=== PATIENT | male | born 1960 | race Two or more races ===

== ENCOUNTER 2017-12-08 16:54 | Inpatient (IN) | payer OTHER ==
[~2017-12-08] VITALS: Ht 167.6 cm; Wt 88.9 kg
[~2017-12-08 16:54] MED LIST: ALBUTEROL SULFAT2 MG; CARDIZEM CD240 MG PO; CARDIZEM LA240 MG; HYZAAR 100-121 UDTAB; HYZAAR 100-121 UDTAB PO; LEVAQUIN750 MG PO; PREDNISONE10 MG; RYTHMOL SR225 MG; ZOCOR80 MG; [UNRECOGNIZED DRUG - OTHER]
== END 2017-12-14 17:38 | disposition home or self-care (01) | DRG 440 ==
LOC: ER 16:54 → SEC-K 22:46 → MEDI 12-10 14:00
PROC: BW40ZZZ Ultrasonography of Abdomen (ICD-10-PCS; principal; 2017-12-08)
PROC: BF37ZZZ Magnetic Resonance Imaging (MRI) of Pancreas (ICD-10-PCS; 2017-12-08)
PROC: 3E0F7GC Introduction of Other Therapeutic Substance into Respiratory Tract, Via Natural or Artificial Opening (ICD-10-PCS; 2017-12-08)
DX: K85.80 Other acute pancreatitis without necrosis or infection (principal); E11.9 Type 2 diabetes mellitus without complications; I11.9 Hypertensive heart disease without heart failure; J44.9 Chronic obstructive pulmonary disease, unspecified; J45.998 Other asthma

== ENCOUNTER 2018-12-06 16:35 | Inpatient (IN) | payer OTHER ==
[~2018-12-06] VITALS: Ht 167.6 cm; Wt 93.9 kg
[~2018-12-06 16:35] MED LIST changes: +AMIODARONE PO; +CALAN SR120 MG; +CARDURA1 MG PO; +COZAAR100 MG; +GLIPIZIDE ER2.5 MG; +METFORMIN HCL500 MG; +ZETIA10 MG
[2018-12-06] MEDS ORDERED: GLUCOTROL10 MG (16:44)
[2018-12-06] MEDS ORDERED: COZAAR100 MG (16:44)
[2018-12-06] MEDS ORDERED: SINGULAIR 10MG10 MG (16:44)
--- NOTE | 2018-12-06 16:45 | NUR ---
SE RECIBE PACIENTE QUE REFIERE DOLOR ABDOMINAL JOE DESDE ESTA MANANA. PACIENTE VERBALIZA FRANK SIDO REFERIDO A KATIE DE EMERGENCIAS POR LA LIPASA ALYSHA EN LABORATORIO.
--- NOTE | 2018-12-06 17:40 | NUR ---
PACIENTE ALERTA Y ORIENTADO EVALAUDO POR EL DR. STEPHEN SE ORIENTA A PACIENTE SOBRE TRATAMEINTO MEDICO SE EXTRAEN MUESTRAS DE SHAWN Y SE ADMINSITRAN MEDICAEMNTOS FABY ORDEN MEDICA BAJO MEDIDAS ASEPTICAS.
[2018-12-07] MEDS ORDERED: AMIODARONE HCL200 MG PO (11:09)
== END 2018-12-12 10:43 | disposition home or self-care (01) | DRG 439 ==
LOC: ER 16:35 → SEC-K 23:53 → MEDI 23:53
PROVIDERS: ADMIT Internal Medicine
PROC: BW40ZZZ Ultrasonography of Abdomen (ICD-10-PCS; 2018-12-06)
PROC: 3E0F7GC Introduction of Other Therapeutic Substance into Respiratory Tract, Via Natural or Artificial Opening (ICD-10-PCS; 2018-12-06)
PROC: BF37ZZZ Magnetic Resonance Imaging (MRI) of Pancreas (ICD-10-PCS; principal; 2018-12-07)
DX: K86.1 Other chronic pancreatitis (principal); J44.1 Chronic obstructive pulmonary disease with (acute) exacerbation; J44.0 Chronic obstructive pulmonary disease with (acute) lower respiratory infection; J20.9 Acute bronchitis, unspecified; E11.65 Type 2 diabetes mellitus with hyperglycemia; E11.22 Type 2 diabetes mellitus with diabetic chronic kidney disease; I12.9 Hypertensive chronic kidney disease with stage 1 through stage 4 chronic kidney disease, or unspecified chronic kidney disease; N18.2 Chronic kidney disease, stage 2 (mild); Z79.4 Long term (current) use of insulin; E78.00 Pure hypercholesterolemia, unspecified; R74.8 Abnormal levels of other serum enzymes; K86.81 Exocrine pancreatic insufficiency

== ENCOUNTER 2024-09-10 07:29 | Emergency (ER) | payer OTHER ==
[~2024-09-10] VITALS: Ht 167.6 cm; Wt 85.3 kg
[~2024-09-10 07:29] MED LIST changes: +AMIODARONE HCL200 MG PO; +GLUCOTROL10 MG; +SINGULAIR 10MG10 MG
[2024-09-10] MEDS ORDERED: PLAVIX75 MG PO (08:04)
[2024-09-10] MEDS ORDERED: LANOXIN125 MCG PO (08:04)
[2024-09-10] MEDS ORDERED: CARDIZEM CD360 MG PO (08:04)
[2024-09-10] MEDS ORDERED: XARELTO20 MG (08:05)
[2024-09-10] MEDS ORDERED: KETOROLAC TROMETHAMINE 60 MG VIAL IM STA (08:24)
[2024-09-10] MEDS ORDERED: RINGERS SOLUTION,LACTATED 1,000 ML IV STA (08:24)
[2024-09-10 09:16] LABS: HEMATOCRIT 38.5 % (39.0-48.0); HEMOGLOBIN 13.3 g/dL (13-16.00); MEAN CELL VOLUME 92.3 fL (80.0-100.00); MEAN CORPUSCULAR HEMOGLOBIN 31.9 pg (27.00-32.0); MEAN CORPUSCULAR HGB CONC 34.5 g/dl (32.0-36.0); PLATELET COUNT 162 K/uL (150-450); RED BLOOD COUNT 4.17 M/uL (4.00-6.00); RED CELL DISTRIBUTION WIDTH 14.4 % (11.5-14.5)
[2024-09-10 09:50] LABS: INR 1.16; PARTIAL THROMBOPLASTIN TIME 31.9 SECONDS (22.0-34.0); PROTHROMBIN TIME 12.5 SECONDS (9.0-11.5)
[2024-09-10 10:02] LABS: ALBUMIN 4.4 gm/dL (3.4-5.0); BILIRUBIN TOTAL 1.3 mg/dL (0.3-1.2); BILIRUBIN,CONJUGATED 0.29 mg/dL (0.0-0.2); BILIRUBIN,UNCONJUGATED 1.01 mg/dL (0.0-0.6); CALCIUM 9.3 mg/dL (8.5-10.1); CREATININE SERUM 0.72 mg/dL (0.70-1.30); GFR 109.22; POTASSIUM 3.88 mEq/L (3.5-5.1); TOTAL PROTEIN 7.7 gm/dL (6.4-8.2)
[2024-09-10 10:21] LABS: PH,URINE 7.5 (5.0-8.0); URINE APPEARANCE Clear; URINE BILIRRUBIN Negative (NEGATIVE); URINE BLOOD Negative; URINE COLOR Yellow; URINE GLUCOSE Negative (NEGATIVE); URINE KETONE Negative (NEGATIVE); URINE LEUKOCYTE Negative; URINE NITRATE Negative; URINE PROTEIN Negative (NEGATIVE); URINE UROBILINOGEN 0.2 E.U./dl
[2024-09-10 10:49] LABS: URINE BACTERIA 1.2 uL (0.0-1933); URINE EPITHELIAL CELLS 0.4 uL (0.0-38.8); URINE RBC 8.6 uL (0.0-20.8); URINE WBC 0.7 uL (0.0-23.2)
== END 2024-09-10 13:30 | disposition home or self-care (01) ==
LOC: ER 07:30
PROVIDERS: General Practice
DX: K59.00 Constipation, unspecified (principal); R10.9 Unspecified abdominal pain; I10 Essential (primary) hypertension; E11.9 Type 2 diabetes mellitus without complications; Z88.2 Allergy status to sulfonamides; Z88.5 Allergy status to narcotic agent
CPT/HCPCS: 36415; 74176; 74240; 93005; 96372; 99284; J1885